=== PATIENT | female | born 1985 | race Caucasian/White ===

== ENCOUNTER 2016-09-03 19:31 | Emergency (ER) | payer OTHER ==
--- NOTE | 2016-09-03 21:45 | ED ORDER SUMMARY ---
..... Patient: JULISSA SMITH OrderSheet [facility] VisitID: [id number] [address] [place] [address] 30y, F Registration Date/Time: 09/03/2016 ORDER SHEET Weight: 142.8 kg (stated) Allergies: Claritin, Niacin, Robitussin DM, Vancomycin GENERAL ORDERS: CBC w Diff Urgent (19:48 09/03/2016 EKoroleva P.A.-C) (Ack 19:50 CHagerty ER Soft Work Cigar Machine Operator) (20:05 CBradburn R.N.) Urine Urgent (19:49 09/03/2016 EKoroleva P.A.-C) (Ack 19:50 CHagerty ER Soft Work Cigar Machine Operator) (19:53 CBradburn R.N.) US Pelvic Complete w Transvag Urgent (19:55 09/03/2016 EKoroleva P.A.-C) (Ack 19:57 CHagerty ER Soft Work Cigar Machine Operator) (21:15 CBradburn R.N.) Pelvic Exam Setup (19:55 09/03/2016 EKoroleva P.A.-C) (20:01 CBradburn R.N.) MEDICATION ORDERS: Motrin PO 800 mg (NOW) (21:55 09/03/2016 EKoroleva P.A.-C) (21:57 JQuivey R.N.) Tramadol PO 50 mg (NOW) (21:55 09/03/2016 EKoroleva P.A.-C) (21:58 JQuivey R.N.) IV FLUIDS: ORDER SHEET NOTES: [Electronically signed by Christine HusainAChaz-C (22:06 09/03/2016)] [Electronically signed by Joaquin Chi R.N. (23:48 09/03/2016)] [Electronically locked/signed by Joaquin Chi R.N. (23:48 09/03/2016)]
--- NOTE | 2016-09-03 21:45 | ED CLINICAL REPORT ---
Clinical Report - Physicians/Mid Levels [facility] [address] [place] [address] 09/03/2016 19:34 Patient: JULISSA SMITH Time Seen: 19:46 Sep 03 2016. Arrived- By private vehicle. Historian- patient. HISTORY OF PRESENT ILLNESS Chief Complaint: VAGINAL BLEEDING. This started just prior to arrival and still present. The symptoms are described as moderate. The patient has had pelvic pain. She has had irregular periods. No pain with urination. (heavy meness today, one pad per hour. Reports irregular menses, perhaps 9-10 a year, reports last menstrual period was 2 months prior. Told by REFUELING RAMPMAN she was unable to conceive children.). REVIEW OF SYSTEMS No vomiting, fever, chills, eye discomfort or sore throat. No skin rash. All systems otherwise negative, except as recorded above. PAST HISTORY Problems: Abdominal Pain. . Back Pain. Lumbar Radiculopathy. Par defect L5. Near Syncope. Migraine Headache. Anxiety Reaction. Additional Surgeries: Lap band [2008]. SOCIAL HISTORY Smoker- current status unknown. No alcohol use. ADDITIONAL NOTES The nursing notes have been reviewed. PHYSICAL EXAM Vital Signs: 09/03/2016 19:44 BP: 136/83. HR: 81. RR: 16. O2 saturation: 97%. Temp: 98.4 F. Pain level now: 7/10. Appearance: Alert. No acute distress. Neck: Neck supple. CVS: Abnormal rate. Heart sounds normal. Respiratory: No respiratory distress. Breath sounds normal. Abdomen: Soft and nontender. Obese. : Speculum and bimanual exam performed. External inspection normal. Speculum exam normal. Moderate vaginal bleeding, consisting of bright red blood, via the cervical os. No herpes-like lesions. Mild right adnexal tenderness; uterine tenderness; left adnexal tenderness. Not mild cervical motion tenderness. No tenderness with movement of the cervix. Skin: Skin warm. Normal skin color. Neuro: Oriented X 3. LABS, X-RAYS, AND EKG Laboratory Tests: Urine: (DESHAUN: 09/03/2016 19:40) ( MsgRcvd 09/03/2016 20:09) Final results Test Result Flag Units (Reference) URINE NEGATIVE CBC w Diff: (DESHAUN: 09/03/2016 20:02) ( MsgRcvd 09/03/2016 20:24) Final results Test Result Flag Units (Reference) WHITE BLOOD COUNT 9.3 K/uL (4.5-11.5) RED BLOOD COUNT 4.50 M/uL (4.00-5.20) HEMOGLOBIN 13.9 gm/dL (12.0-16.0) HEMATOCRIT 40.5 % (36.0-46.0) MEAN CELL VOLUME 90 fL (80-100) MEAN CORPUSCULAR HGB 31 pg (26-34) MEAN CORPUSCULAR HGB CONC 34 g/dL (31-37) RED CELL DISTRIBUTION WIDTH 13.1 % (11.6-14.8) PLATELET COUNT 251 K/uL (150-400) NEUTROPHIL % 56.9 % (50-75) LYMPH % 33.4 % (25-40) MONO % 7.2 % (3-14) EOSINOPHIL % 2.2 % (0-4) BASOPHIL % 0.3 % (0-2) . Note - Tests: (US : ovaries not visualized, no large obvious masses). PROGRESS AND PROCEDURES Course of Care: Chaperoned exam with RN. Pain out of proportion to exam. Patient given tramadol and Motrin for her pain in the emergency department. Patient with negative . Stable. Patient with no signs of McBurney's point tenderness. During the time in the ED, the following DDX were considered: acute surgical abdomen, hemodynamic or metabolic instability, dehydration, gastroenteritis-viral, food borne, or bacterial, food intolerance, irritable or inflammatory bowel, infection, sepsis. 09/03/2016 21:49 BP: 115/83. HR: 81. RR: 16. O2 saturation: 97%. Patient is stable. Symptoms better. Patient/family counseled. Disposition: Discharged. CLINICAL IMPRESSION Primary dysmenorrhea Moderate dysfunctional uterine bleeding- menorrhagia. INSTRUCTIONS Drink plenty of fluids. Warnings: Further evaluation is necessary. Follow-up: Follow up with your doctor in three days. (Electronically signed by Christine Husain P.A.-C 09/03/2016 22:06)
--- NOTE | 2016-09-03 21:45 | ED CLINICAL REPORT ---
Clinical Report - Physicians/Mid Levels [facility] [address] [place] [address] 09/03/2016 19:34 Patient: JULISSA SMITH Time Seen: 19:46 Sep 03 2016. Arrived- By private vehicle. Historian- patient. HISTORY OF PRESENT ILLNESS Chief Complaint: VAGINAL BLEEDING. This started just prior to arrival and still present. The symptoms are described as moderate. The patient has had pelvic pain. She has had irregular periods. No pain with urination. (heavy meness today, one pad per hour. Reports irregular menses, perhaps 9-10 a year, reports last menstrual period was 2 months prior. Told by CAT SWAMPER she was unable to conceive children.). REVIEW OF SYSTEMS No vomiting, fever, chills, eye discomfort or sore throat. No skin rash. All systems otherwise negative, except as recorded above. PAST HISTORY Problems: Abdominal Pain. . Back Pain. Lumbar Radiculopathy. Par defect L5. Near Syncope. Migraine Headache. Anxiety Reaction. Additional Surgeries: Lap band [2008]. SOCIAL HISTORY Smoker- current status unknown. No alcohol use. ADDITIONAL NOTES The nursing notes have been reviewed. PHYSICAL EXAM Vital Signs: 09/03/2016 19:44 BP: 136/83. HR: 81. RR: 16. O2 saturation: 97%. Temp: 98.4 F. Pain level now: 7/10. Appearance: Alert. No acute distress. Neck: Neck supple. CVS: Abnormal rate. Heart sounds normal. Respiratory: No respiratory distress. Breath sounds normal. Abdomen: Soft and nontender. Obese. : Speculum and bimanual exam performed. External inspection normal. Speculum exam normal. Moderate vaginal bleeding, consisting of bright red blood, via the cervical os. No herpes-like lesions. Mild right adnexal tenderness; uterine tenderness; left adnexal tenderness. Not mild cervical motion tenderness. No tenderness with movement of the cervix. Skin: Skin warm. Normal skin color. Neuro: Oriented X 3. LABS, X-RAYS, AND EKG Laboratory Tests: Urine: (DESHAUN: 09/03/2016 19:40) ( MsgRcvd 09/03/2016 20:09) Final results Test Result Flag Units (Reference) URINE NEGATIVE CBC w Diff: (DESHAUN: 09/03/2016 20:02) ( MsgRcvd 09/03/2016 20:24) Final results Test Result Flag Units (Reference) WHITE BLOOD COUNT 9.3 K/uL (4.5-11.5) RED BLOOD COUNT 4.50 M/uL (4.00-5.20) HEMOGLOBIN 13.9 gm/dL (12.0-16.0) HEMATOCRIT 40.5 % (36.0-46.0) MEAN CELL VOLUME 90 fL (80-100) MEAN CORPUSCULAR HGB 31 pg (26-34) MEAN CORPUSCULAR HGB CONC 34 g/dL (31-37) RED CELL DISTRIBUTION WIDTH 13.1 % (11.6-14.8) PLATELET COUNT 251 K/uL (150-400) NEUTROPHIL % 56.9 % (50-75) LYMPH % 33.4 % (25-40) MONO % 7.2 % (3-14) EOSINOPHIL % 2.2 % (0-4) BASOPHIL % 0.3 % (0-2) . Note - Tests: (US : ovaries not visualized, no large obvious masses). PROGRESS AND PROCEDURES Course of Care: Chaperoned exam with RN. Pain out of proportion to exam. Patient given tramadol and Motrin for her pain in the emergency department. Patient with negative . Stable. Patient with no signs of McBurney's point tenderness. During the time in the ED, the following DDX were considered: acute surgical abdomen, hemodynamic or metabolic instability, dehydration, gastroenteritis-viral, food borne, or bacterial, food intolerance, irritable or inflammatory bowel, infection, sepsis. 09/03/2016 21:49 BP: 115/83. HR: 81. RR: 16. O2 saturation: 97%. Patient is stable. Symptoms better. Patient/family counseled. Disposition: Discharged. CLINICAL IMPRESSION Primary dysmenorrhea Moderate dysfunctional uterine bleeding- menorrhagia. INSTRUCTIONS Drink plenty of fluids. Warnings: Further evaluation is necessary. Follow-up: Follow up with your doctor in three days. (Electronically signed by Christine Husain P.A.-C 09/03/2016 22:06)
--- NOTE | 2016-09-03 21:45 | ED ORDER SUMMARY ---
..... Patient: JULISSA SMITH OrderSheet [facility] VisitID: [id number] [address] [place] [address] 30y, F Registration Date/Time: 09/03/2016 ORDER SHEET Weight: 142.8 kg (stated) Allergies: Claritin, Niacin, Robitussin DM, Vancomycin GENERAL ORDERS: CBC w Diff Urgent (19:48 09/03/2016 EKoroleva P.A.-C) (Ack 19:50 CHagerty ER Smocker) (20:05 CBradburn R.N.) Urine Urgent (19:49 09/03/2016 EKoroleva P.A.-C) (Ack 19:50 CHagerty ER Smocker) (19:53 CBradburn R.N.) US Pelvic Complete w Transvag Urgent (19:55 09/03/2016 EKoroleva P.A.-C) (Ack 19:57 CHagerty ER Smocker) (21:15 CBradburn R.N.) Pelvic Exam Setup (19:55 09/03/2016 EKoroleva P.A.-C) (20:01 CBradburn R.N.) MEDICATION ORDERS: Motrin PO 800 mg (NOW) (21:55 09/03/2016 EKoroleva P.A.-C) (21:57 JQuivey R.N.) Tramadol PO 50 mg (NOW) (21:55 09/03/2016 EKoroleva P.A.-C) (21:58 JQuivey R.N.) IV FLUIDS: ORDER SHEET NOTES: [Electronically signed by Christine HusainAChaz-C (22:06 09/03/2016)] [Electronically signed by Joaquin Chi R.N. (23:48 09/03/2016)] [Electronically locked/signed by Joaquin Chi R.N. (23:48 09/03/2016)]
--- NOTE | 2016-09-03 21:45 | ED NURSING NOTES ---
Clinical Report - Nurses [facility] [address] [place] [address] 09/03/2016 19:34 Patient: JULISSA SMITH TRIAGE Triage time 19:40. Acuity: LEVEL 3. Chief Complaint: VAGINAL BLEED, PAINFUL URINATION and FREQUENCY and ABNORMAL BLEEDING (heavy then normal). --19:51 Milly Ward R.N. 19:44 09/03/16. BP: 136/83 taken on the left arm, while lying. HR: 81 (regular and normal rate). RR: 16. O2 saturation: 97% on room air. Temp: 98.4 F (oral). Pain level now: 10/30. --19:51 Milly Ward R.N. Weight: 142.8 kg stated. Height/Length: 66 inches Per Patient. BMI: 50.8. --19:45 Milly Ward R.N. Medications ClonazePAM Oral 0.5 mg, as needed. Cymbalta Oral 120 mg at hs. Percocet Oral 5/325 mg, as needed. Ranitidine HCl Oral 300 mg, at bedtime. Robaxin Oral 750 mg x 2 tabs, as needed. Ventolin HFA Inhalation, as needed. Zofran Oral 4 mg odt, as needed. --19:49 Milly Ward R.N. Imitrex Oral (Tablet 50 mg) 1 tablet, PRN. --19:49 Milly Ward R.N. Abilify Oral (Tablet 20 mg) 1 tablet, bedtime. --19:49 Milly Ward R.N. Allergies Claritin. Niacin. Robitussin DM. Vancomycin. --19:49 Milly Ward R.N. History Arrived by private vehicle. Historian: patient. Accompanied by family. Primary physician (ehsan). This started yesterday. ( pt reports heavy then normal vaginal bleeding started yesterday, with cramping in abd and lower back). Treatment ROAD ENGINEER FREIGHT: Took Tylenol. PAST MEDICAL HX: Last normal menstrual period now. 1. Para 1. SOCIAL HX: Light tobacco smoker (cigarette)- less than 1/2 a pack per day. No alcohol use or drug use. ABUSE ASSESSMENT: No report of abuse. SELF HARM ASSESSMENT: A self harm assessment was performed. The patient answered "no" to the question "Have you recently felt down, depressed, or hopeless?", "Have you noticed less interest or pleasure in doing things?", "Do you have thoughts of harming or killing yourself?", "Are you here because you tried to hurt yourself?", "Have you ever tried to hurt yourself before today?", "Have you recently had thoughts about harming or killing others?" and "Do you have any dangerous items in your possession?". FALL RISK ASSESSMENT: Fall risk assessment completed. No fall risk identified. NUTRITIONAL RISK ASSESSMENT: The nutritional risk assessment revealed no deficiencies. FUNCTIONAL ASSESSMENT: Functional assessment: no impairments noted. LEARNING NEEDS ASSESSMENT: The learning needs assessment revealed no barriers. SKIN INTEGRITY ASSESSMENT: Skin integrity risk assessment completed. No skin integrity risk identified. --19:51 Milly Ward R.N. PROBLEMS: Abdominal Pain. . Back Pain. Lumbar Radiculopathy. Par defect L5. Near Syncope. Migraine Headache. Anxiety Reaction. --19:50 Milly Ward R.N. ADDITIONAL SURGERIES: Lap band [2008]. --19:50 Milly Ward R.N. Interventions ID band on patient. --19:51 Milly Ward R.N. PHYSICAL ASSESSMENT Ambulatory to room. GENERAL / NEURO / PSYCH: Alert. Oriented X 4. Appears in no acute distress. HEENT: Mucous membranes are pink. RESPIRATORY: Respirations not labored. Breath sounds within normal limits. CVS: Normal heart rate and rhythm. Capillary refill less than 2 seconds. GI / : Abdomen soft and nontender. Bowel sounds within normal limits. Moderate vaginal bleeding present, consisting of bright red blood .1 pad per hour. No genital lesions noted. No vaginal discharge or genital lesions. SKIN: Skin is warm and dry. --19:52 Milly Ward R.N. NURSING PROGRESS NOTES Two patient identifiers checked. Call light placed in reach. Side rails up x 1. Bed placed in lowest position. Brakes of bed on. --19:52 Milly Ward R.N. Patient ID band checked for patient name and birthdate: patient confirmed. Instructions provided to collect clean catch urine and patient verbalized understanding. Clean catch urine collected with return of yellow-colored clear urine; sample sent to lab for urinalysis. Specimen labeled in the presence of the patient. --19:52 Milly Ward R.N. Patient ready for evaluation- chart flagged. --19:53 Milly Ward R.N. Patient ID band checked for patient name and birthdate: patient confirmed. Blood samples drawn from the right antecubital space with Vacutainer and 23g butterfly by nurse per protocol ; labeled in presence of the patient and sent to lab: rainbow set. --20:07 Milly Ward R.N. Reassurance given to the patient. PELVIC EXAM: Pelvic exam performed by SAJAN GATES). Assisted by one nurse. Preparation: pelvic tray. Procedure: speculum and bimanual exam. Mildly tender genital lesions noted. Light amount of vaginal bleeding noted. Status post-procedure: she was stable and no complications were noted. --20:33 Milly Ward R.N. 21:53 09/03/2016 Motrin PO 800 mg given. Allergies verified and confirmed 5 rights. --21:57 Joaquin Chi R.N. 21:53 09/03/2016 Tramadol (TraMADol HCl) PO 50 mg given. Allergies verified, confirmed 5 rights and sedative warning given to the patient. --21:58 Joaquin Chi R.N. 21:57. The patient is calm and resting quietly. SKIN: Skin is warm and dry. Skin color within normal limits. --21:59 Joaquin Chi R.N. DISPOSITION / DISCHARGE Departure time: 21:59. Condition at departure: stable. No learning barriers present. Discharge instructions provided and reviewed with the patient. Patient verbalized understanding. Written instructions provided in Romanian. The patient was discharged home and accompanied by manager diabetes. She left the Emergency Department ambulatory and via private vehicle. Physical Therapy Resident driving. FALL RISK ASSESSMENT: Fall risk assessment completed. No fall risk identified. --21:59 Joaquin Chi R.N. 21:49 09/03/16. BP: 115/83. HR: 81. RR: 16. O2 saturation: 97%. --21:59 Joaquin Chi R.N. Locked/Released at 09/03/2016 23:48 by Joaquin Chi R.N.
--- NOTE | 2016-09-03 22:22 | DIAGNOSTIC IMAGING REPORT ---
PROCEDURE: US COMPLETE PELVIC W/TRANSVAG INDICATION: Pain and bleeding. TECHNIQUE: Transabdominal and endovaginal ramos scale and color Doppler sonographic images of the female pelvis were obtained. Stephany Marroquin. COMPARISON: Compared CT abdomen pelvis on 03/08 16. FINDINGS: Study is partially limited due to body habitus. TRANSABDOMINAL SCANS: Uterus is normal (6.6 x 5.6 x 3.7 cm). Kidneys are normal. TRANSVAGINAL SCANS: Endometrial thickness is normal (7 mm). Ovaries are not identified. No evidence of an adnexal mass. No evidence of free fluid. IMPRESSION: 1. Negative pelvic ultrasound.
--- NOTE | 2016-09-03 23:48 | ED MED RECONCILIATION SUMMARY ---
Patient: JULISSA SMITH Medication Reconciliation Report [facility] VisitID: [id number] [address] [place] [address] 30y, F Registration Date/Time: 09/03/2016 Weight: 142.8 kg Height/Length: 66 in. BMI: 50.8 ALLERGIES: Claritin, Niacin, Robitussin DM, Vancomycin The patient's Home Medications are listed below: THE FOLLOWING MEDICATIONS NEED TO BE RECONCILED: Abilify Oral (20 mg) 1 tablet, bedtime ClonazePAM Oral 0.5 mg Cymbalta Oral 120 mg at hs Imitrex Oral (50 mg) 1 tablet, PRN Percocet Oral 5/325 mg Ranitidine HCl Oral 300 mg, at bedtime Robaxin Oral 750 mg x 2 tabs Ventolin HFA Inhalation Zofran Oral 4 mg odt The source(s) of the original Home Medication information: Not obtained. The following Medications were given to the patient in the Emergency Department: Motrin [PO] PO 800 mg, administered: 09/03/2016 9:53:00 PM Tramadol [PO] PO 50 mg, administered: 09/03/2016 9:53:00 PM The following Medications were prescribed to the patient: None.
--- NOTE | 2016-09-03 23:48 | ED MAR SUMMARY ---
..... Medication Administration Record [facility] [address] [place] [address] Patient: JULISSA SMITH Visit ID: [id number] 30y, F Weight: 142.8 kg Height/Length: 66 in BMI: 50.8 ALLERGIES: Claritin, Niacin, Robitussin DM, Vancomycin Given 21:09/03/2016 Joaquin Chi, R.N. Medication Administered: MOTRIN [PO], Dose: 800 mg PO. Medication Ordered: Motrin PO 800 mg (NOW). Given :53 09/03/2016 Joaquin Chi, R.N. Medication Administered: TRAMADOL [PO] (TRAMADOL HCL), Dose: 50 mg PO. Medication Ordered: Tramadol PO 50 mg (NOW).
--- NOTE | 2016-09-03 23:48 | ED MED RECONCILIATION SUMMARY ---
Patient: JULISSA SMITH Medication Reconciliation Report [facility] VisitID: [id number] [address] [place] [address] 30y, F Registration Date/Time: 09/03/2016 Weight: 142.8 kg Height/Length: 66 in. BMI: 50.8 ALLERGIES: Claritin, Niacin, Robitussin DM, Vancomycin The patient's Home Medications are listed below: THE FOLLOWING MEDICATIONS NEED TO BE RECONCILED: Abilify Oral (20 mg) 1 tablet, bedtime ClonazePAM Oral 0.5 mg Cymbalta Oral 120 mg at hs Imitrex Oral (50 mg) 1 tablet, PRN Percocet Oral 5/325 mg Ranitidine HCl Oral 300 mg, at bedtime Robaxin Oral 750 mg x 2 tabs Ventolin HFA Inhalation Zofran Oral 4 mg odt The source(s) of the original Home Medication information: Not obtained. The following Medications were given to the patient in the Emergency Department: Motrin [PO] PO 800 mg, administered: 09/03/2016 9:53:00 PM Tramadol [PO] PO 50 mg, administered: 09/03/2016 9:53:00 PM The following Medications were prescribed to the patient: None.
--- NOTE | 2016-09-03 23:48 | ED MAR SUMMARY ---
..... Medication Administration Record [facility] [address] [place] [address] Patient: JULISSA SMITH Visit ID: [id number] 30y, F Weight: 142.8 kg Height/Length: 66 in BMI: 50.8 ALLERGIES: Claritin, Niacin, Robitussin DM, Vancomycin Given 21:09/03/2016 Joaquin Chi, R.N. Medication Administered: MOTRIN [PO], Dose: 800 mg PO. Medication Ordered: Motrin PO 800 mg (NOW). Given :53 09/03/2016 Joaquin Chi, R.N. Medication Administered: TRAMADOL [PO] (TRAMADOL HCL), Dose: 50 mg PO. Medication Ordered: Tramadol PO 50 mg (NOW).
--- NOTE | 2016-09-03 23:48 | ED DISCHARGE INSTRUCTIONS ---
Patient: JULISSA SMITH General Instructions [facility] VisitID: [id number] [place] [address] 30y, F Registration Date/Time: 09/03/2016 Primary dysmenorrhea Moderate dysfunctional uterine bleeding- menorrhagia. INSTRUCTIONS Drink plenty of fluids. Warnings: Further evaluation is necessary. Follow-up: Follow up with your doctor in three days. ADDITIONAL INFORMATION Painful Menstrual Periods The uterus is a muscle and contracts normally during the menstrual cycle. The contraction pushes out the build-up of tissue that occurs each month inside the uterus. If the contraction is very strong, it can cause pain because the muscle is not getting enough oxygen for the amount of work it is doing. Pain with menstruation is called dysmenorrhea. The pain may feel like a dull ache or throbbing in the lower abdomen. It may spread to your lower back or inner thighs. In severe cases there may also be nausea, vomiting, loose stools, sweating or dizziness. There are two types of dysmenorrhea: Primary Dysmenorrhea (common menstrual cramps) usually appears within one or two years after you start your periods. It usually gets better or goes away as you get older or when you have a baby. The menstrual cramps usually start just before, or on the day of your period, and last 1-3 days. Treatment is with comfort measures and anti-inflammatory drugs as described below (see Home Care). If your pain is not controlled with these measures, your doctor may prescribe control pills. This will reduce the pain of each period. Secondary Dysmenorrhea starts later in life. The pain begins earlier in the menstrual cycle and lasts longer than common menstrual cramps. It is caused by a specific problem with the pelvic organs, such as: PID (pelvic inflammatory disease) -- an infection in the fallopian tubes Fibroids benign tumors within the wall of the uterus (not cancer) Endometriosis the tissue that lines the uterus spreads outside the uterus and grows there. This tissue swells and bleeds each month, just like the tissue in your uterus, and causes pain. IUD use -- especially in the first few months after placement Once the cause of secondary dysmenorrhea is found, it can be treated. Home Care: Most women with common menstrual cramping (primary dysmenorrhea) can remain active throughout their period. Many women find that regular exercise each werek reduces menstrual pain. If cramping is severe, rest in bed with a heating pad on the lower abdomen or lower back. A hot bath or massage to the lower back and abdomen may also give relief. Smoking can make symptoms worse. If you smoke, ask your doctor for help with a stop-smoking plan. Avoid caffeine and alcohol around the time of your period since these can make symptoms worse. Anti-inflammatory medicine such as aspirin, ibuprofen (Advil, Motrin) or naproxen (Aleve, Naprosyn) can be very helpful, especially if taken at the very first signs of bleeding or cramping . Acetaminophen (Tylenol) is not as effective for this problem. [NOTE: If you have chronic liver or kidney disease or ever had a stomach ulcer or GI bleeding, talk with your doctor before using these medicines.] If your pain is not controlled by the above measures, a prescription pain medicine may be required for a short time. Discuss this with your doctor. Follow Up with your doctor as advised. If you have just started menstruating in the past 1-2 years, and your pain is mild to moderate, your symptoms are most likely not a cause for concern. However, if menstrual cramps are severe enough to interfere with your daily activities, last longer than a few days, or if you are older and just started having menstrual pain, it is important to see your doctor for further evaluation. Get Prompt Medical Attention if any of the following occur: Fever over 100.4F (38.0C) with pelvic pain Uncontrolled menstrual pain or pain that lasts longer than usual or occurs between periods Unusual vaginal discharge between periods Heavy vaginal bleeding (soaking more than one pad an hour for three hours) Passage of pink or ramos tissue from the vagina If you use tampons, watch for the following signs of Toxic Shock Syndrome and return at once: Fever over 102.0F (38.9C), with or without pelvic pain Vomiting, diarrhea Dizziness, weakness or fainting Rash that looks like a bad sunburn Irregular Vaginal Bleeding This is a condition in which bleeding occurs at unexpected times of the month. The bleeding may be heavier or research engineer marine equipment than usual. Heavy bleeding may lead to anemia. If severe enough, anemia may cause you to look pale and feel weak or fatigued. You might have shortness of breath even with little exertion. The female hormones produced in your body every month may be out of balance. This imbalance leads to bleeding. Causes could include an ovarian cyst, emotional stress, pelvic infection. Failure to ovulate during your last cycle may also cause this problem. Home Care: If bleeding is heavy, rest and avoid heavy exertion. You may use acetaminophen (Tylenol) or ibuprofen (Motrin, Advil) to control pain, unless another pain medicine was prescribed. [NOTE: If you have chronic liver or kidney disease or ever had a stomach ulcer or GI bleeding, talk with your doctor before using these medicines.] Iron supplements may be prescribed for anemia. It takes about 4-6 weeks for the iron to correct the anemia. Take the medicine as directed. See your doctor for a repeat blood test after you finish the iron treatment. If hormones were prescribed to control your bleeding, take them exactly as directed. If you were prescribed a medicine called Provera (medroxyprogesterone), the bleeding should stop while you are taking it. Another period will start a few days after you finish the medicine. Follow Up with your doctor, or as advised, within the next 1-2 days if heavy bleeding continues. Otherwise, follow up within the next 1-2 weeks. Get Prompt Medical Attention if any of the following occur: Bleeding becomes heavy (soaking one pad an hour for three hours) Fever of 100.4F (38C) or higher, or as directed by your healthcare provider Increase in abdominal pain Weakness, dizziness or fainting You have been given the following additional information: Dysmenorrhea Dysfunctional Uterine Bleeding (Electronically signed by Christine Husain P.A.-C 09/03/2016 22:06)
== END 2016-09-03 21:59 | disposition home or self-care (01) ==
LOC: ED SRH 19:31
DX: N94.4 Primary dysmenorrhea (principal); N93.8 Other specified abnormal uterine and vaginal bleeding
CPT/HCPCS: 93070; 95059